=== PATIENT | female | born 1975 | race African-American/Black ===

== ENCOUNTER 2017-04-11 16:52 | Emergency (ER) | payer OTHER ==
[2017-04-11 16:56] VITALS: BP 123/70; PULSE 94; TEMP 98.4; BMI 28.9
--- NOTE | 2017-04-11 17:44 | PDOC ---
History of Present Illness <Aretha Garcia - Last Filed: 04/11/17 19:08> - History of Present Illness Initial Comments: 04/11/17 18:05 Patient is a 42 year old female (13 weeks, /M2) with no significant medical hx who is presenting to the ED with one day of vaginal spotting, mild abdominal cramping, and lower back pain. The patient reports she had light, red vaginal spotting since 11AM this morning. The patient states her bleeding is not heavy enough to saturate a pad; however it is present when she wipes and on an underwear liner. The patient reports that her symptoms are not as severe as her past miscarriages. Patient notes shes had nausea and vomiting since the start of her and shes been taking Diclegis three times a day for her symptoms. She endorses 1-2 episodes of nausea and vomiting per day. The patients last US was on 03/30/17 which was reportedly normal. She has an upcoming appointment with a CNM in the following week. Patient recently moved to the area for work from [place]. Her past RAIL CREW MEMBER contact information is listed below. The patient was treated for six months for infertility. She was also treated for low progesterone, which she was recommended discontinue treatment by RAIL CREW MEMBER at week 12 of her current . Surgical Hx: Right foot bunionectomy Social Hx: Denies tobacco, ETOH, and illicit drug use. Allergies: Penicillins, prochlorperazine, prochlorperazine edisylate, prochlorperazine maleate Past RAIL CREW MEMBER: Adonay Dominguez MD ([phone][place] [place] Current CNM: Tabatha Rangel CNM ([phone]) ([place]) <Berenice Fontana - Last Filed: 04/11/17 19:19> - General Chief Complaint: Vaginal Bleeding Stated Complaint: VAGINAL BLEEDING/13 WKS Time Seen by Provider: 04/11/17 17:02 Past History - Past Medical History Other medical history: none - Reproductive History Is Patient Now?: Yes (#): 4 Para: 1 Cervical CA: No Dysfunctional Uterine Bleeding: No Ectopic : No Endometrial CA: No Polycystic Ovaries: No Therapeutic (s) & number: No Tubal Ligation: No Spontaneous : 2 - Psycho/Social/Smoking Cessation Hx Anxiety: No Suicidal Ideation: No Smoking History: Never smoked Have you smoked in the past 12 months: No Information on smoking cessation initiated: No Hx Alcohol Use: No Drug/Substance Use Hx: No Substance Use Type: None <Aretha Garcia - Last Filed: 04/11/17 19:08> <MarizolBerenice - Last Filed: 04/11/17 19:19> - Past Medical History Allergies/Adverse Reactions: Allergies Allergy/AdvReac Type Severity Reaction Status Date / Time Penicillins Allergy Verified 04/11/17 16:54 prochlorperazine Allergy Verified 04/11/17 16:54 [From Compazine] prochlorperazine edisylate Allergy Verified 04/11/17 16:54 [From Compazine] prochlorperazine maleate Allergy Verified 04/11/17 16:54 [From Compazine] Home Medications: Ambulatory Orders Doxylamine/Pyridoxine HCl [Nidhis Dr 10-10 mg Tablet] 1 each PO 04/11/17 Review of Systems - Review of Systems Comments:: 04/11/17 18:07 CONSTITUTIONAL: Absent: fever, chills, diaphoresis, generalized weakness, malaise, loss of appetite HEENT: Absent: rhinorrhea, nasal congestion, throat pain, throat swelling, difficulty swallowing, mouth swelling, ear pain, eye pain, visual changes CARDIOVASCULAR: Absent: chest pain, syncope, palpitations, irregular heart rate, lightheadedness , peripheral edema RESPIRATORY: Absent: cough, shortness of breath, dyspnea with exertion, orthopnea, wheezing, stridor, hemoptysis GASTROINTESTINAL: Present: mild abdominal cramping Absent: abdominal distension, nausea, vomiting, diarrhea, constipation, melena, hematochezia GENITOURINARY: Present: vaginal spotting Absent: dysuria, frequency, urgency, hesitancy, hematuria, flank pain, genital pain MUSCULOSKELETAL: Present: lower back pain Absent: myalgia, arthralgia, joint swelling SKIN: Absent: rash, itching, pallor HEMATOLOGIC/IMMUNOLOGIC: Absent: easy bleeding, easy bruising, lymphadenopathy, frequent infections ENDOCRINE: Absent: unexplained weight gain, unexplained weight loss, heat intolerance, cold intolerance NEUROLOGIC: Absent: headache, focal weakness or paresthesia, dizziness, unsteady gait, seizure, mental status changes, bladder or bowel incontinence. PSYCHIATRIC: Absent: anxiety, depression, suicidal or homicidal ideation, hallucinations <MarizolBerenice - Last Filed: 04/11/17 19:19> *Physical Exam - Vital Signs Last Vital Signs Temp Pulse Resp BP Pulse Ox 98.4 F 94 H 18 123/70 100 04/11/17 16:54 04/11/17 16:54 04/11/17 16:54 04/11/17 16:54 04/11/17 16:54 <Aretha Garcia - Last Filed: 04/11/17 19:08> - Vital Signs Last Vital Signs Temp Pulse Resp BP Pulse Ox 98.4 F 94 H 18 123/70 100 04/11/17 16:54 04/11/17 16:54 04/11/17 16:54 04/11/17 16:54 04/11/17 16:54 - Physical Exam Comments: 04/11/17 18:10 GENERAL: Well developed, well nourished. Awake and alert. No acute distress. HEENT: Normocephalic, atraumatic. PERRLA, EOMI. No conjunctival pallor. Sclera are non- icteric. Moist mucous membranes. Oropharynx is clear. NECK: Supple. Full ROM. No JVD. Carotid pulses 2+ and symmetric, without bruits. No thyromegaly. No lymphadenopathy. CARDIOVASCULAR: Regular rate and rhythm. No murmurs, rubs, or gallops. Distal pulses are 2+ and symmetric. PULMONARY: No evidence of respiratory distress. Lungs clear to auscultation bilaterally. No wheezing, rales or rhonchi. ABDOMINAL: Soft. Non-tender. Non-distended. No rebound or guarding. No organomegaly. Normoactive bowel sounds. MUSCULOSKELETAL: Normal range of motion at all joints. No bony deformities or tenderness. No CVA tenderness. EXTREMITIES: No cyanosis. No clubbing. No edema. No calf tenderness. SKIN: Warm and dry. Normal capillary refill. No rashes. No jaundice. NEUROLOGICAL: Alert, awake, appropriate. Cranial nerves 2-12 intact. Normal speech. Gait is normal without ataxia. PSYCHIATRIC: Cooperative. Good eye contact. Appropriate mood and affect. <Berenice Fonatna - Last Filed: 04/11/17 19:19> ED Treatment Course - LABORATORY CBC & Chemistry Diagram: 04/11/17 17:56 <Aretha Garcia - Last Filed: 04/11/17 19:08> - LABORATORY CBC & Chemistry Diagram: 04/11/17 17:56 - RADIOLOGY Radiograph Interpretation: 04/11/17 19:19 Obstetrical US Impression: Single viable intrauterine gestation at 13 weeks 4 days. 2 cm left ovarian cyst. Reported By: Kirk Banegas MD <Berenice Fontana - Last Filed: 04/11/17 19:19> Medical Decision Making - Medical Decision Making 04/11/17 18:59 42-year-old female who is approximately 13 weeks , presents with scant vaginal bleeding that she noted when she wiped. She denies any cramping She has a long history of hyperemesis and has been vomiting since week 4. 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 Her RAIL CREW MEMBER is in [place], [place] and she requests that her ultrasound be faxed to his office She's had a long history of fertility treatments and had been on low had been on progesterone up until week 12 4 for . Today at 11 AM she noticed some spotting, but no significant bleeding. No passage of large clots. And no cramping. She says that she has chronic low back pain 4, para 1, 2 miscarriages, one Last menstrual period 01/05/2017 Ultrasound showed a single viable intrauterine at 13 weeks and 4 days , heart tones 159 bpm, a 2 cm left ovarian cyst. <Aretha Garcia - Last Filed: 04/11/17 19:08> *DC/Admit/Observation/Transfer <Aretha Garcia - Last Filed: 04/11/17 19:08> - Attestations Scribe Attestion: 04/11/17 18:08 Documentation prepared by Berenice Fontana, acting as remote medical coder for Aretha Garcia MD. <Berenice Fontana - Last Filed: 04/11/17 19:19> Diagnosis at time of Disposition: Vaginal bleeding in Qualifiers: Trimester: second trimester Qualified Code(s): O46.92 - Antepartum hemorrhage, unspecified, second trimester - Discharge Dispostion Disposition: HOME Condition at time of disposition: Stable - Referrals Referrals: STAFF,NOT ON [Primary Care Provider] - - Patient Instructions Printed Discharge Instructions: DI for Vaginal Bleeding During Additional Instructions: please continue care with your track repair laborer
[2017-04-11 18:06] LABS: BASOPHIL 0.4 % (0-2.0); MCH 28.2 pg (25.7-33.7); MCHC 32.9 g/dl (32.0-36.0); MEAN CELL VOLUME 85.8 fl (80-96); MEAN PLT VOLUME 7.7 fl (7.5-11.1); NEUTROPHILS 64.9 % (42.8-82.8); PLATELET COUNT 248 K/MM3 (134-434); RDW 15.2 % (11.6-15.6); WHITE BLOOD COUNT 10.7 K/mm3 (4.0-10.0)
== END 2017-04-11 19:25 | disposition home or self-care (01) ==
LOC: JER 16:52
DX: O46.91 Antepartum hemorrhage, unspecified, first trimester (principal); O34.81 Maternal care for other abnormalities of pelvic organs, first trimester; N83.292 Other ovarian cyst, left side; Z3A.13 13 weeks gestation of pregnancy
CPT/HCPCS: 36415; 76801-TC; 84702; 85025; 86850; 86900; 86901; 99283-25

== ENCOUNTER 2017-04-15 07:31 | Emergency (ER) | payer OTHER ==
[2017-04-15 07:36] VITALS: TEMP 98.4; BMI 28.9
[2017-04-15 08:42] LABS: PH,URINE 8.5 (5.0-8.0); URINE APPEARANCE CLEAR; URINE BILIRUBIN NEGATIVE (NEGATIVE); URINE COLOR LT. YELLOW; URINE GLUCOSE (UA) NEGATIVE (NEGATIVE); URINE KETONE TRACE (NEGATIVE); URINE LEUK ESTERASE NEGATIVE (NEGATIVE); URINE NITRITE NEGATIVE (NEGATIVE); URINE PROTEIN TRACE (NEGATIVE); URINE UROBILINOGEN 0.2 E.U/dl E.U./dl (0.2-1.0)
--- NOTE | 2017-04-15 08:44 | PDOC ---
History of Present Illness - General Chief Complaint: Vaginal Bleeding Stated Complaint: VAGINAL BLEEDING Time Seen by Provider: 04/15/17 07:47 History Source: Patient Exam Limitations: No Limitations - History of Present Illness Travel History: No Initial Comments: 04/15/17 08:08 42-year-old M2 female currently 14 weeks presents to the ED with complaints of passing a dime size blood clot from her vagina after voiding this morning. Patient states was seen here a few days ago for vaginal spotting including abdominal pain and low back pain. Patient was discharged home after having a normal IUP ultrasound with a cyst in her left ovary. Patient denies presently abdominal pain, nausea, back pain, dysuria, diarrhea, vaginal discharge, fever or chills. Timing/Duration: reports: intermittent Quality: reports: mild Aggravating Factors: improves with: Voiding Alleviating Factors: improves with: None Past History - Past Medical History Allergies/Adverse Reactions: Allergies Allergy/AdvReac Type Severity Reaction Status Date / Time Penicillins Allergy Verified 04/15/17 07:36 prochlorperazine Allergy Verified 04/15/17 07:36 [From Compazine] prochlorperazine edisylate Allergy Verified 04/15/17 07:36 [From Compazine] prochlorperazine maleate Allergy Verified 04/15/17 07:36 [From Compazine] Home Medications: Ambulatory Orders Vit/Iron Fumarate/FA [ Tablet] 1 each PO DAILY 04/15/17 Other medical history: denies - Reproductive History (#): 4 Para: 1 Cervical CA: No Dysfunctional Uterine Bleeding: No Ectopic : No Endometrial CA: No Polycystic Ovaries: No Therapeutic (s) & number: No Tubal Ligation: No Spontaneous : 2 - Psycho/Social/Smoking Cessation Hx Anxiety: No Suicidal Ideation: No Smoking History: Never smoked Have you smoked in the past 12 months: No Information on smoking cessation initiated: No Hx Alcohol Use: No Drug/Substance Use Hx: No Substance Use Type: None Patient Lives Alone: No Lives with/in: spouse/SO Review of Systems - Review of Systems Able to Perform ROS?: Yes Constitutional: No: Symptoms Reported Respiratory: No: Symptoms reported ABD/GI: No: Symptoms Reported : Yes: Discharge Musculoskeletal: No: Symptoms Reported Integumentary: No: Symptoms Reported Neurological: No: Symptoms reported *Physical Exam - Vital Signs Last Vital Signs Temp Pulse Resp BP Pulse Ox 98.4 F 92 H 18 113/65 98 04/15/17 07:34 04/15/17 07:34 04/15/17 07:34 04/15/17 07:34 04/15/17 07:34 - Physical Exam General Appearance: Yes: Nourished, Appropriately Dressed. No: Apparent Distress HEENT: negative: Pale Conjunctivae Respiratory/Chest: positive: Lungs Clear, Normal Breath Sounds. negative: Respiratory Distress, Accessory Muscle Use Cardiovascular: positive: Regular Rhythm, Regular Rate. negative: Murmur Female Pelvic Exam: positive: cervical os closed, vaginal bleeding (scant pinkish mclean). negative: CMT Gastrointestinal/Abdominal: positive: Normal Bowel Sounds, Soft, Distended. negative: Tenderness Extremity: positive: Normal Capillary Refill Integumentary: positive: Normal Color, Warm, Moist ED Treatment Course - RADIOLOGY Radiology Studies Ordered: Category Date Time Status FOLLOW-UP US [US] Stat Ultrasound 04/15/17 08:06 Ordered Medical Decision Making - Medical Decision Making 04/15/17 08:15 Patient here for episodic passing of a dime size blood clot from her vagina this morning after urinating. Patient exam had no abdominal tenderness but did have pinkish mclean discharge in small amounts within the vaginal canal. Patient ordered for urinalysis since one was not collected on previous visit along with follow-up ultrasound. Bedside ultrasound done by copywriter which measured a heart rate of 147 and noted movement. Mother felt reassured and stopped crying. 04/15/17 09:17 Laboratory Tests 04/15/17 08:11 Urine pH 8.5 H Urine Protein Trace H Urine Ketones Trace H Urine Blood Trace H Urine Nitrite Negative Ur Leukocyte Esterase Negative 04/15/17 09:36 Ultrasound shows single live intrauterine gestation of 14 weeks and 5 days with a low-lying anterior placenta. The heart rate is 1 40 bpm. *DC/Admit/Observation/Transfer Diagnosis at time of Disposition: Threatened in second trimester - Discharge Dispostion Disposition: HOME Condition at time of disposition: Good - Patient Instructions Printed Discharge Instructions: DI for Threatened Additional Instructions: At this time the heart rate and amniotic fluid are within normal limits. I do recommend that you follow-up with the RN SURGERY located in [place] . You may return to the ED at any given time if you develop worsening vaginal bleeding severe abdominal pain, or fever.
[2017-04-15 08:48] LABS: URINE BLOOD TRACE (NEGATIVE)
[2017-04-15 09:09] LABS: URINE MUCUS FEW; URINE RBC 1 /hpf (0-3); URINE WBC 2 /hpf (3-5)
[2017-04-15 09:56] VITALS: BP 121/65; PULSE 86
== END 2017-04-15 09:56 | disposition home or self-care (01) ==
LOC: JER 07:31
DX: O20.0 Threatened abortion (principal); Z3A.14 14 weeks gestation of pregnancy
CPT/HCPCS: 76816-TC; 81003; 81015; 99283-25